=== PATIENT | female | born 1985 | race African-American/Black ===

== ENCOUNTER 2019-08-30 16:29 | Emergency (ER) | payer OTHER | END 2019-08-30 17:50 | disposition home or self-care (01) | LOC: ERS 16:29 | DX: B85.0 Pediculosis due to Pediculus humanus capitis (principal); F17.210 Nicotine dependence, cigarettes, uncomplicated | CPT/HCPCS: 99282 ==

== ENCOUNTER 2019-11-01 07:05 | Emergency (ER) | payer SELFPAY | END 2019-11-01 08:04 | disposition home or self-care (01) | LOC: ERS 07:05 | DX: Z71.1 Person with feared health complaint in whom no diagnosis is made (principal); F32.9 Major depressive disorder, single episode, unspecified; F17.210 Nicotine dependence, cigarettes, uncomplicated | CPT/HCPCS: 99282 ==

== ENCOUNTER 2021-08-25 20:00 | Emergency (ER) | payer SELFPAY ==
[2021-08-25] MEDS ORDERED: Acetaminophen 500 MG TAB ONE (22:36)
== END 2021-08-26 00:09 | disposition home or self-care (01) ==
LOC: ERS 20:00
DX: B34.9 Viral infection, unspecified (principal); D64.9 Anemia, unspecified; Z87.891 Personal history of nicotine dependence
CPT/HCPCS: 87804; 99283

== ENCOUNTER 2022-01-18 08:44 | Emergency (ER) | payer SELFPAY ==
[2022-01-18] MEDS ORDERED: Acetaminophen 500 MG TAB ONE (11:00)
== END 2022-01-18 13:32 | disposition home or self-care (01) ==
LOC: ERS 08:44
DX: N61.1 Abscess of the breast and nipple (principal); Z87.891 Personal history of nicotine dependence

== ENCOUNTER 2022-11-03 09:16 | Emergency (ER) | payer SELFPAY | END 2022-11-03 10:16 | disposition home or self-care (01) | LOC: ERS 09:16 | DX: T78.40XA Allergy, unspecified, initial encounter (principal); B86 Scabies; F17.210 Nicotine dependence, cigarettes, uncomplicated | CPT/HCPCS: 99283 ==

== ENCOUNTER 2023-04-23 10:47 | Emergency (ER) | payer OTHER ==
[2023-04-23 11:08] LABS: #Eosinphils 0.2 thou/uL (0.0-0.7); #Monocytes 0.4 thou/uL (0.11-0.59); #Neutrophils 3.9 thou/uL (1.40-6.50); %Basophils 0.7 % (0.0-1.0); %Eosinophils 4.1 % (0.0-10.0); %Lymphocytes 22.9 % (21.0-51.0); %Monocytes 6.1 % (0.0-10.0); %Neutrophils 65.9 % (42.0-75.0); Hematocrit 35.7 % (36.0-47.0); Hemoglobin 11.2 g/dL (12.0-16.0); Mean Corpuscular HGB CONC 31.4 g/dL (32.0-36.0); Mean Corpuscular Hemoglobin 29.5 pg (27.0-31.0); Mean Corpuscular Volume 93.9 fl (78.0-98.0); Mean Platelet Volume 10.3 fL (7.4-10.4); Platelet Count 273 10x3/uL (130-400); RBC Distribution Width 17.2 % (11.5-14.5); White Blood Cell (WBC) Count 5.9 10x3/uL (4.8-10.8)
[2023-04-23 11:36] LABS: ALT (SGPT) 16 U/L (8-55); AST (SGOT) 14 U/L (5-34); Albumin 4.1 g/dL (3.5-5.0); Alkaline Phosphatase 51 U/L (40-110); Anion Gap 8 mmol/L (10-20); BUN (Urea Nitrogen) 8 mg/dL (7.0-18.7); Bilirubin, Total 0.2 mg/dL (0.2-1.2); Calc. Creatinine Clearance 0 mL/min (70-130); Calcium 9.2 mg/dL (7.8-10.44); Carbon Dioxide 26 mmol/L (22-29); Chloride 107 mmol/L (98-107); Estimated GFR 89; Globulin 3.3 g/dL (2.4-3.5); Glucose 110 mg/dL (70-105); Protein, Total 7.4 g/dL (6.0-8.3); Sodium 137 mmol/L (136-145)
[2023-04-23 12:39] LABS: Bacteria/HPF 1+ HPF (None Seen); Bilirubin Negative (Negative); Blood, Urine 3+ (Negative); CAUTI Indications for Culture Pelvic or flank pain; Glucose, Urine (Dipstick) Normal (Negative); Ketone, Urine Negative (Negative); Leukocyte 75 Leu/uL (Negative); Nitrite Negative (Negative); Pregnancy Test - Urine (BHCG) Negative (Negative); Pregu Control Background? CLEAR/WHITE (CLR/WHITE); Pregu Control Bar Appear? YES (CONTROL BAR); Protein, Urine (Dipstick) 200 mg/dL (Neg-Trace); RBC/HPF 21-50 HPF (0-3); Squamous Epithelial None Seen HPF (0-3); Urobilinogen Normal mg/dL (Less than 2); WBC/HPF 0-3 HPF (0-3); pH, Urine 7.5 (5.0-9.0)
[2023-04-23 12:40] LABS: Clarity Cloudy (Clear)
[2023-04-23 12:41] LABS: Urine Culture Reflex No No
[2023-04-23 16:00] LABS: Chlamydia by PCR, Vaginal Swab Not Detected (NotDetected); GC by PCR, Vaginal Swab Not Detected (NotDetected)
== END 2023-04-23 13:40 | disposition home or self-care (01) ==
LOC: ERS 10:47
DX: N92.1 Excessive and frequent menstruation with irregular cycle (principal); E11.9 Type 2 diabetes mellitus without complications; F17.210 Nicotine dependence, cigarettes, uncomplicated
CPT/HCPCS: 36415; 80053; 81001; 81025; 85025; 86850; 86900; 86901; 87480; 87491; 87510; 87591; 87660; 99284

== ENCOUNTER 2024-07-14 13:40 | Emergency (ER) | payer OTHER ==
[2024-07-14] MEDS ORDERED: Ibuprofen 800 MG TAB ONE (14:47)
== END 2024-07-14 15:05 | disposition home or self-care (01) ==
LOC: ERS 13:40
DX: N61.0 Mastitis without abscess (principal); F17.210 Nicotine dependence, cigarettes, uncomplicated
CPT/HCPCS: 99283

== ENCOUNTER 2024-09-02 11:50 | Emergency (ER) | payer OTHER ==
[2024-09-02] MEDS ORDERED: Ketorolac Tromethamine 30 MG (1 mL) VIAL ONE (12:06)
[2024-09-02] MEDS ORDERED: Orphenadrine Citrate 60 MG/2 ML VIAL ONE (12:25)
[2024-09-02] MEDS ORDERED: HYDROcodone/Acetaminophen 5/325 mg Tablet ONE (13:21)
== END 2024-09-02 13:24 | disposition home or self-care (01) ==
LOC: ERS 11:50
DX: S16.1XXA Strain of muscle, fascia and tendon at neck level, initial encounter (principal); M62.838 Other muscle spasm; F17.210 Nicotine dependence, cigarettes, uncomplicated; X58.XXXA Exposure to other specified factors, initial encounter
CPT/HCPCS: 93005; 96372; 99283; J1885; J2360

== ENCOUNTER 2024-10-07 14:02 | Emergency (ER) | payer OTHER ==
[2024-10-07] MEDS ORDERED: Acetaminophen 500 MG TAB ONE (15:15)
[2024-10-07] MEDS ORDERED: guaiFENesin ER 600 MG TAB ONE (15:16)
== END 2024-10-07 15:45 | disposition home or self-care (01) ==
LOC: ERS 14:02
DX: J01.90 Acute sinusitis, unspecified (principal); B96.89 Other specified bacterial agents as the cause of diseases classified elsewhere; B34.9 Viral infection, unspecified; F17.210 Nicotine dependence, cigarettes, uncomplicated; E11.9 Type 2 diabetes mellitus without complications
CPT/HCPCS: 87428; 99283

== ENCOUNTER 2025-07-09 07:19 | Emergency (ER) | payer OTHER ==
[2025-07-09] MEDS ORDERED: Ketorolac Tromethamine 30 MG (1 mL) VIAL ONE (08:00)
== END 2025-07-09 08:31 | disposition home or self-care (01) ==
LOC: ERS 07:19
DX: J06.9 Acute upper respiratory infection, unspecified (principal); B97.89 Other viral agents as the cause of diseases classified elsewhere; E11.9 Type 2 diabetes mellitus without complications; F17.210 Nicotine dependence, cigarettes, uncomplicated
CPT/HCPCS: 71045; 87428; 96372; J1885